=== PATIENT | male | born 2000 ===

== ENCOUNTER 2022-02-27 15:00 | Emergency (ER) | payer SELFPAY ==
[2022-02-27 15:12] VITALS: BP 160/70
[2022-02-27] MEDS ORDERED: IBUPROFEN 800 MG TAB PO ONE (16:17)
[2022-02-27] MEDS ORDERED: BACITRACIN ZINC OINT 28.4 GM TP PRN (16:17)
[2022-02-27] MEDS ORDERED: CYCLOBENZAPRINE 10 MG TAB PO ONE (16:17)
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
== END 2022-02-27 17:15 | disposition home or self-care (01) ==
LOC: ED 15:00
DX: S80.212A Abrasion, left knee, initial encounter (principal); S50.812A Abrasion of left forearm, initial encounter; M79.18 Myalgia, other site; R51.9 Headache, unspecified; V87.7XXA Person injured in collision between other specified motor vehicles (traffic), initial encounter; Y93.89 Activity, other specified; Y92.488 Other paved roadways as the place of occurrence of the external cause; Y99.8 Other external cause status
CPT/HCPCS: 99283